=== PATIENT | female | born 1960 | race Caucasian/White ===

== ENCOUNTER 2023-02-04 20:01 | Emergency (ER) | payer OTHER, BC ==
[2023-02-04 20:08] VITALS: BP 149/79; PULSE 71; RESP 16; TEMP 97.7; BMI 39.2
[2023-02-04] MEDS ORDERED: KETOROLAC TROMETHAMINE 60 MG/2 ML VIAL IM ONE (21:12)
[2023-02-04] MEDS ORDERED: CYCLOBENZAPRINE HCL 10 MG TABLET (FP) PO ONE (21:12)
[2023-02-04] MEDS ORDERED: KETOROLAC TROMETHAMINE 60 MG/2 ML VIAL ONE (21:14)
[2023-02-04] MEDS ORDERED: CYCLOBENZAPRINE HCL 5 MG TABLET ONE (21:14)
== END 2023-02-04 21:25 | disposition home or self-care (01) ==
LOC: FER 20:01
PROC: 3E0233Z Introduction of Anti-inflammatory into Muscle, Percutaneous Approach (ICD-10-PCS; principal; 2023-02-04)
DX: M79.601 Pain in right arm (principal); S46.311A Strain of muscle, fascia and tendon of triceps, right arm, initial encounter; X50.9XXA Other and unspecified overexertion or strenuous movements or postures, initial encounter
CPT/HCPCS: 73060-TC-RT-FY; 99284-25

== ENCOUNTER 2023-04-08 04:50 | Day surgery (SDC) | payer OTHER, BC ==
[2023-04-05 11:19] VITALS: BMI 39.2
[2023-04-08 11:33] VITALS: TEMP 97.8
[2023-04-08 12:07] VITALS: BP 107/54; PULSE 68; RESP 20
== END 2023-04-08 12:20 | disposition home or self-care (01) ==
LOC: JASU-ENDO 04:50
PROVIDERS: ATTEND Internal Medicine Gastroenterology
PROC: 0DBL8ZX Excision of Transverse Colon, Via Natural or Artificial Opening Endoscopic, Diagnostic (ICD-10-PCS; 2023-04-08)
PROC: 0DBN8ZX Excision of Sigmoid Colon, Via Natural or Artificial Opening Endoscopic, Diagnostic (ICD-10-PCS; 2023-04-08)
PROC: 0DBP8ZX Excision of Rectum, Via Natural or Artificial Opening Endoscopic, Diagnostic (ICD-10-PCS; principal; 2023-04-08 11:00)
DX: Z12.11 Encounter for screening for malignant neoplasm of colon (principal); Z83.71 Family history of colonic polyps; D12.8 Benign neoplasm of rectum; D12.3 Benign neoplasm of transverse colon; D12.5 Benign neoplasm of sigmoid colon
CPT/HCPCS: 88305-TC